=== PATIENT | male | born 1985 | race African-American/Black ===

== ENCOUNTER 2017-08-04 22:29 | Emergency (ER) | payer OTHER ==
[2017-08-04 22:36] VITALS: BP 113/77; PULSE 73; TEMP 97.9; BMI 27.5
--- NOTE | 2017-08-04 23:54 | PDOC ---
History of Present Illness - General Chief Complaint: Eye Problem Stated Complaint: EYE STYE Time Seen by Provider: 08/04/17 23:22 History Source: Patient Exam Limitations: No Limitations - History of Present Illness Initial Comments: 08/04/17 23:46 32yo Male patient w/ no significant past medical history presents to ED c/o right eye lesion to eye lid. Patient states symptoms began 3-4 days ago and getting worse. He denies vision changes or any other complaints at this time. Past History - Travel Traveled outside of the country in the last 30 days: No Close contact w/someone who was outside of country & ill: No - Past Medical History Allergies/Adverse Reactions: Allergies Allergy/AdvReac Type Severity Reaction Status Date / Time pollen Allergy Uncoded 10/26/16 17:04 Home Medications: Ambulatory Orders Sulfamethoxazole/Trimethoprim [Bactrim Ds -] 1 tab PO BID #14 tablet 10/26/16 Erythromycin 0.5% Eye Ointment [Erythromycin 0.5% Eye Ointment -] 1 applic OD BID #1 tube 08/04/17 - Suicide/Smoking/Psychosocial Hx Smoking History: Never smoked Have you smoked in the past 12 months: No Number of Cigarettes Smoked Daily: 2 Information on smoking cessation initiated: No Hx Alcohol Use: No Drug/Substance Use Hx: No Substance Use Type: Marijuana Review of Systems - Review of Systems HEENTM: Yes: Other (Eye Lid Swelling and Pain.). No: Eye Pain, Blurred Vision, Recent change in vision, Double Vision, Ear Pain All Other Systems: Reviewed and Negative *Physical Exam - Vital Signs Last Vital Signs Temp Pulse Resp BP Pulse Ox 97.9 F 73 17 113/77 100 08/04/17 22:34 08/04/17 22:34 08/04/17 22:34 08/04/17 22:34 08/04/17 22:34 - Physical Exam General Appearance: Yes: Nourished, Appropriately Dressed. No: Apparent Distress, Mild Distress, Moderate Distress, Severe Distress HEENT: positive: EOMI, BEREKET, Normal ENT Inspection, Normal Voice, Symmetrical, TMs Normal, Pharynx Normal, Other (Swollen right lower eyelid margin, mild erythema.). negative: Scleral Icterus (R), Scleral Icterus (L), Pharyngeal Erythema, Tonsillar Exudate, Tonsillar Erythema, Nasal Congestion, Rhinorrhea, Sinus Tenderness, TM Bulging, TM Dull, TM Erythema Respiratory/Chest: positive: Lungs Clear, Normal Breath Sounds. negative: Chest Tender, Respiratory Distress, Accessory Muscle Use, Labored Respiration, Rapid RR Cardiovascular: positive: Regular Rhythm, Regular Rate Musculoskeletal: positive: Normal Inspection. negative: CVA Tenderness Extremity: positive: Normal Capillary Refill, Normal Inspection, Normal Range of Motion. negative: Swelling, Erythema, Inflammation Integumentary: positive: Normal Color, Dry, Warm. negative: Moist, Hives, Rash , Swelling Neurologic: positive: direct service provider II-XII NML intact, Fully Oriented, Alert, Normal Mood/ Affect, Normal Response, Motor Strength 5/5 *DC/Admit/Observation/Transfer Diagnosis at time of Disposition: Hordeolum externum (stye) Qualifiers: Laterality: right Eyelid: lower Qualified Code(s): H00.012 - Hordeolum externum right lower eyelid - Discharge Dispostion Disposition: HOME Condition at time of disposition: Stable Admit: No - Prescriptions Prescriptions: Erythromycin 0.5% Eye Ointment [Erythromycin 0.5% Eye Ointment -] 1 applic OD BID #1 tube - Referrals Referrals: Antonio Gordon [Primary Care Provider] - Santiago Powers MD [Staff Physician] - - Patient Instructions Printed Discharge Instructions: DI for Hordeolum Additional Instructions: Apply warm compress to affected eye daily and as needed. Apply ointment to lower eye lid as discussed. You can use a cotton tip applicator (Q-tip). Be sure to wash face prior to applying ointment. If symptoms do not improve within 1-2 weeks follow up with Ophthalmology Dr. Powers for further evaluation. Print Language: ANGUILLAN
== END 2017-08-05 00:14 | disposition home or self-care (01) ==
LOC: JER 22:29
DX: H00.012 Hordeolum externum right lower eyelid (principal)
CPT/HCPCS: 99281-25

== ENCOUNTER 2017-08-15 02:26 | Emergency (ER) | payer OTHER ==
[2017-08-15 03:08] VITALS: BP 146/112; PULSE 88; TEMP 97.5; BMI 27.5
--- NOTE | 2017-08-15 03:15 | PDOC ---
History of Present Illness - General Chief Complaint: Hematuria Stated Complaint: AFTER URINATING - BLOOD Time Seen by Provider: 08/15/17 02:52 History Source: Patient Exam Limitations: No Limitations - History of Present Illness Initial Comments: 08/15/17 03:16 32 y.o. M with no pmh presenting with hematuria. 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 Patient also had the urge to urinate at the time. He urinated into a bottle but felt like he bent his penis too much while peeing and started to have a little discomfort. The next morning while urinating, patient noticed some black crust around his penis. He also noticed a few drops of bright red blood after urinating. Patient has not had any hematuria after that episode. He denies any dysuria, urgency, frequency, fever, chills, back pain, weight loss, smoking hx. Patient states he has had prior kidney stones. PSH- facial reconstruction, and brain tumor removal Allergies- NKDA SH- Denies smoking, drug use, + alcohol PCP- Dr. Gordon Past History - Past Medical History Allergies/Adverse Reactions: Allergies Allergy/AdvReac Type Severity Reaction Status Date / Time pollen Allergy Uncoded 08/15/17 02:51 - Suicide/Smoking/Psychosocial Hx Smoking History: Unknown if ever smoked Have you smoked in the past 12 months: No Number of Cigarettes Smoked Daily: 2 Information on smoking cessation initiated: No Hx Alcohol Use: No Drug/Substance Use Hx: No Substance Use Type: Marijuana Review of Systems - Review of Systems Able to Perform ROS?: Yes Comments:: 08/15/17 03:14 GENERAL/CONSTITUTIONAL: No fever or chills. No weakness. HEAD, EYES, EARS, NOSE AND THROAT: No change in vision. No ear pain or discharge. No sore throat. CARDIOVASCULAR: No chest pain or shortness of breath RESPIRATORY: No cough, wheezing, or hemoptysis. GASTROINTESTINAL: No nausea, vomiting, diarrhea or constipation. GENITOURINARY: No dysuria, frequency, or change in urination. +hematuria MUSCULOSKELETAL: No joint or muscle swelling or pain. No neck or back pain. SKIN: No rash NEUROLOGIC: No headache, vertigo, loss of consciousness, or change in strength/ sensation. ENDOCRINE: No increased thirst. No abnormal weight change HEMATOLOGIC/LYMPHATIC: No anemia, easy bleeding, or history of blood clots. ALLERGIC/IMMUNOLOGIC: No hives or skin allergy. *Physical Exam - Vital Signs Last Vital Signs Temp Pulse Resp BP Pulse Ox 97.5 F L 88 17 146/112 100 08/15/17 02:55 08/15/17 02:55 08/15/17 02:55 08/15/17 02:55 08/15/17 02:55 - Physical Exam Comments: 08/15/17 03:14 GENERAL: Awake, alert, and fully oriented, in no acute distress HEAD: No signs of trauma, normocephalic, atraumatic EYES: PERRLA, EOMI, sclera anicteric, conjunctiva clear ENT: Auricles normal inspection, hearing grossly normal, nares patent, oropharynx clear without exudates. Moist mucosa NECK: Normal ROM, supple, no lymphadenopathy, JVD, or masses LUNGS: No distress, speaks full sentences, clear to auscultation bilaterally HEART: Regular rate and rhythm, normal S1 and S2, no murmurs, rubs or gallops, peripheral pulses normal and equal bilaterally. ABDOMEN: Soft, nontender, normoactive bowel sounds. No guarding, no rebound. No masses EXTREMITIES: Normal inspection, Normal range of motion, no edema. No clubbing or cyanosis. NEUROLOGICAL: Cranial nerves II through XII grossly intact. Normal speech, normal gait, no focal sensorimotor deficits SKIN: Warm, Dry, normal turgor, no rashes or lesions noted. : The testicles are descended bilaterally. They are firm, non tender, and without masses or lesions. No penile lesions are noted and there is no discharge from the urethra. The scrotum is without induration, erythema, or edema. No hernias are palpated in the inguinal canals. No blood surrounding urethra. ED Treatment Course - LABORATORY CBC & Chemistry Diagram: 08/15/17 03:19 08/15/17 03:19 Medical Decision Making - Medical Decision Making 08/15/17 03:49 32 y.o. M with no pmh presenting with hematuria. ddx: Trauma, UTI, Nephrolithiasis Plan: CBC, CMP, UA, UCx 08/15/17 04:22 CBC, CMP, UA unremarkable Patient to be discharged with f/u with urologist and PCP *DC/Admit/Observation/Transfer Diagnosis at time of Disposition: Hematuria Qualifiers: Hematuria type: unspecified type Qualified Code(s): R31.9 - Hematuria, unspecified - Discharge Dispostion Disposition: HOME Condition at time of disposition: Stable - Referrals Referrals: Max Del Rosario MD., MD [Staff Physician] - - Patient Instructions Printed Discharge Instructions: Blood in Urine Additional Instructions: Follow up with a urologist and your primary care provider within 1 week. I have provided you with a referral for a urologist. Drink plenty of fluids and stay hydrated. If you have ANY new or worsening symptoms, please come back to the hospital immediately.
[2017-08-15 03:26] LABS: BASOPHIL 1.1 % (0-2.0); MCH 30.1 pg (25.7-33.7); MCHC 33.8 g/dl (32.0-35.9); MEAN CELL VOLUME 89.1 fl (80-96); MEAN PLT VOLUME 8.3 fl (7.5-11.1); NEUTROPHILS 56.5 % (42.8-82.8); PLATELET COUNT 249 K/MM3 (134-434); RDW 13.1 % (11.9-15.9); WHITE BLOOD COUNT 6.8 K/mm3 (4.0-10.0)
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
[2017-08-15 03:53] LABS: ALBUMIN 4.2 g/dl (3.4-5.0); ALK PHOS 74 U/L (45-117); ANION GAP 10 (8-16); BILIRUBIN,TOTAL 0.4 mg/dL (0.2-1.0); CALCIUM 9.2 mg/dL (8.5-10.1); CO2 26 mmol/L (21-32); CREATININE 1.2 mg/dL (0.7-1.3); GLUCOSE,RANDOM 94 mg/dL (74-106); SGOT/AST 21 U/L (15-37); SGPT/ALT 37 U/L (12-78); TOT PROT 7.7 g/dl (6.4-8.2)
[2017-08-15 04:11] LABS: URINE APPEARANCE SLCLOUDY; URINE BILIRUBIN NEGATIVE (NEGATIVE); URINE BLOOD NEGATIVE (NEGATIVE); URINE COLOR DKYELLOW; URINE GLUCOSE (UA) NEGATIVE (NEGATIVE); URINE KETONE NEGATIVE (NEGATIVE); URINE LEUK ESTERASE TRACE (NEGATIVE); URINE NITRITE NEGATIVE (NEGATIVE); URINE PROTEIN NEGATIVE (NEGATIVE); URINE UROBILINOGEN NEGATIVE mg/dL (0.2-1.0)
[2017-08-15 04:34] LABS: URINE MUCUS RARE; URINE RBC 6 /hpf (0-3); URINE WBC 5 /hpf (3-5)
== END 2017-08-15 05:32 | disposition home or self-care (01) ==
LOC: JER 02:26
DX: F31.9 Bipolar disorder, unspecified (principal)
CPT/HCPCS: 36415; 80053; 81003; 81015; 85025; 99281-25

== ENCOUNTER 2018-10-25 21:06 | Emergency (ER) | payer SELFPAY ==
[2018-10-25 21:21] VITALS: BP 141/95; PULSE 82; TEMP 98.9; BMI 32.8
--- NOTE | 2018-10-25 21:23 | PDOC ---
Rapid Medical Evaluation Time Seen by Provider: 10/25/18 21:18 Medical Evaluation: Allergies Allergy/AdvReac Type Severity Reaction Status Date / Time pollen Allergy Uncoded 09/23/17 09:51 10/25/18 21:19 10/25/18 19:49 I have performed a brief in-person evaluation of this patient. The patient presents with a chief complaint of: sore throat x 2 weeks, no cough , ear pain, f/c. Is a smoker Pertinent physical exam findings: Unremarkable I have ordered the following:HIV The patient will proceed to the ED for further evaluation Discharge Disposition Discharge Disposition - Diagnosis Sore throat - Referrals - Patient Instructions - Post Discharge Activity
--- NOTE | 2018-10-25 22:13 | PDOC ---
History of Present Illness - General Chief Complaint: Sore Throat Stated Complaint: SORE THROAT, EAR PAIN Time Seen by Provider: 10/25/18 21:18 - History of Present Illness Initial Comments: 10/25/18 22:11 33-year-old male without comorbidities presents for evaluation of painful click in his throat and a sore throat for the last 2 weeks without systemic symptoms and also a complaint of diarrhea due to poor diet. He noticed when he eats cheese and certain dairy products he has diarrhea. 10/25/18 22:13 He also is requesting an HIV test due to unprotected sex with partner about 2 months ago he is not in a monogamous relationship Past History - Past Medical History Allergies/Adverse Reactions: Allergies Allergy/AdvReac Type Severity Reaction Status Date / Time pollen Allergy Uncoded 09/23/17 09:51 Home Medications: Ambulatory Orders NK [No Known Home Medication] 09/23/17 COPD: No - Immunization History Immunization Up to Date: Yes - Suicide/Smoking/Psychosocial Hx Smoking History: Current every day smoker Have you smoked in the past 12 months: No Number of Cigarettes Smoked Daily: 4 Information on smoking cessation initiated: No Hx Alcohol Use: No Drug/Substance Use Hx: No Substance Use Type: Marijuana Review of Systems - Review of Systems Constitutional: No: Chills, Fever, Malaise, Night Sweats HEENTM: Yes: Throat Pain. No: Nose Congestion Respiratory: No: Cough ABD/GI: Yes: Diarrhea. No: Constipated, Nausea, Rectal Bleeding, Vomiting *Physical Exam - Vital Signs Last Vital Signs Temp Pulse Resp BP Pulse Ox 98.9 F 82 16 141/95 99 10/25/18 21:18 10/25/18 21:18 10/25/18 21:18 10/25/18 21:18 10/25/18 21:18 - Physical Exam Comments: 10/25/18 22:13 HEAD: NC/AT EYES: Conjuntiva clear Ears: Canals and TM's normal NOSE: No d/c THROAT: Moist mucous membrances, oral pharanx clear, uvula midline NECK: Supple without adenopathy CARDIAC: S1 S2 LUNGS: CTA Full and Equal breath sounds ABDOMEN: Soft NT ND MS: Full ROM in all joints without edema NEUROLOGIC: No gross sensory or motor deficits, NVID SKIN: Normal color and temperature no lesions or rashes Moderate Sedation - Procedure Monitoring Vital Signs: Procedure Monitoring Vital Signs Temperature 98.9 F 10/25/18 21:18 Pulse Rate 82 10/25/18 21:18 Respiratory Rate 16 10/25/18 21:18 Blood Pressure 141/95 10/25/18 21:18 O2 Sat by Pulse Oximetry (%) 99 10/25/18 21:18 *DC/Admit/Observation/Transfer Diagnosis at time of Disposition: Sore throat - Discharge Dispostion Disposition: HOME Condition at time of disposition: Stable Decision to Admit order: No - Referrals Referrals: Sahil Kim MD [Staff Physician] - Obdulio Carbajal DO [Staff Physician] - Dc Landin MD [Staff Physician] - - Patient Instructions Printed Discharge Instructions: Viral Pharyngitis, DI for Viral Pharyngitis, Diarrhea Additional Instructions: Her HIV test and strep tests were negative. Return to the emergency room should she have any further issues. Otherwise follow-up with internal medicine for further evaluation of her throat pain as well as ear nose and throat doctor in 1 -2 days he may also follow-up with GI and gastroenterology in one to 2 days for further evaluation and treatment of your diarrhea. Based on her history I suspect lactose intolerance. High fiber diet and avoid dairy products and plenty of clear fluids - Post Discharge Activity
== END 2018-10-25 22:44 | disposition home or self-care (01) ==
LOC: JERFT 21:06
DX: J02.9 Acute pharyngitis, unspecified (principal); Z11.4 Encounter for screening for human immunodeficiency virus [HIV]
CPT/HCPCS: 36415; 87070; 87389; 87880; 99281-25

== ENCOUNTER 2019-06-21 20:51 | Emergency (ER) | payer OTHER | END 2019-06-21 23:20 | disposition home or self-care (01) | LOC: JERFT 20:51 ==

== ENCOUNTER 2019-06-24 23:50 | Emergency (ER) | payer OTHER ==
[2019-06-25 00:52] VITALS: BP 122/73; PULSE 62; TEMP 98.1; BMI 27.5
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
[2019-06-25] MEDS ORDERED: KETOROLAC TROMETHAMINE 30 MG/1 ML VIAL IM ONE (01:51)
[2019-06-25] MEDS ORDERED: KETOROLAC TROMETHAMINE 30 MG/1 ML VIAL ONE (01:56)
== END 2019-06-25 02:07 | disposition home or self-care (01) ==
LOC: JER 23:50
PROC: 3E0233Z Introduction of Anti-inflammatory into Muscle, Percutaneous Approach (ICD-10-PCS; principal; 2019-06-24)
DX: S39.92XD Unspecified injury of lower back, subsequent encounter (principal); V49.9XXD Car occupant (driver) (passenger) injured in unspecified traffic accident, subsequent encounter
CPT/HCPCS: 99281-25

== ENCOUNTER 2022-01-23 03:24 | Emergency (ER) | payer OTHER ==
[2022-01-23] MEDS ORDERED: IBUPROFEN 400 MG TABLET (FP) PO ONE ×2 (04:07→04:14)
[2022-01-23] MEDS ORDERED: OFLOXACIN 0.3% OTIC SOLUTION 5 ML BOTTLE AD ONE (04:24)
[2022-01-23 04:33] VITALS: BP 118/86; PULSE 89; TEMP 97.8; BMI 26.5
== END 2022-01-23 05:36 | disposition home or self-care (01) ==
LOC: JER 03:24
DX: H60.331 Swimmer's ear, right ear (principal)
CPT/HCPCS: 82962; 99283-25

== ENCOUNTER 2022-03-20 05:51 | Emergency (ER) | payer OTHER ==
[2022-03-20 06:19] VITALS: BP 127/70; PULSE 84; TEMP 98.1; BMI 31.3
[2022-03-20] MEDS ORDERED: LIDOCAINE 5% TOPICAL PATCH TP ONE (07:28)
[2022-03-20] MEDS ORDERED: IBUPROFEN 600 MG TABLET (FP) PO ONE ×2 (07:28→07:38)
[2022-03-20] MEDS ORDERED: LIDOCAINE 5% TOPICAL PATCH ONE (07:39)
[2022-03-20] MEDS ORDERED: LIDOCAINE PATCH REMOVAL MC SCH (22:00)
== END 2022-03-20 08:53 | disposition home or self-care (01) ==
LOC: JER 05:51
DX: S29.012A Strain of muscle and tendon of back wall of thorax, initial encounter (principal); X50.0XXA Overexertion from strenuous movement or load, initial encounter
CPT/HCPCS: 99283-25

== ENCOUNTER 2024-09-20 11:32 | Emergency (ER) | payer OTHER ==
[2024-09-20 11:50] VITALS: BP 121/77; PULSE 61; RESP 17; TEMP 98.5; BMI 31.0
[2024-09-20] MEDS ORDERED: IBUPROFEN 400 MG TABLET (FP) PO ONE (13:00)
[2024-09-20] MEDS ORDERED: ACETAMINOPHEN 500 MG TABLET (FP) ONE (13:00)
[2024-09-20] MEDS: ACETAMINOPHEN 500 MG TABLET (FP) PO ONE (13:04)
[2024-09-20] MEDS: IBUPROFEN 400 MG TABLET (FP) PO ONE (13:04)
== END 2024-09-20 17:29 | disposition home or self-care (01) ==
LOC: JERFT 11:32
DX: M79.671 Pain in right foot (principal)
CPT/HCPCS: 73630-TC-RT-FY; 99283-25